=== PATIENT | female | born 1990 | race Two or more races ===

== ENCOUNTER → 2019-09-20 | Outpatient (CLI) | payer MEDICAID ==
[~2019-09-20] MED LIST: ASCO-184 PO; GALC120P INJ
[2019-09-20 14:29] LABS: BASOPHILS # (AUTO) 0.02 x10^3/uL (0-0.1); BASOPHILS % (AUTO) 0 % (0-1); EOSINOPHILS # (AUTO) 0.03 x10^3/uL (0-0.4); EOSINOPHILS % (AUTO) 0 % (1-7); LYMPHOCYTES % (AUTO) 19 % (22-44); MD NO; MEAN CORPUSCULAR HGB CONC 32.9 g/dL (32.4-35.8); MEAN CORPUSCULAR VOLUME 85.1 fL (80-100); MEAN PLATELET VOLUME 7.3 fL (7.4-10.4); MONOCYTES # (AUTO) 0.43 x10^3/uL (0.2-0.8); MONOCYTES % (AUTO) 6 % (2-9); NEUTROPHILS % (AUTO) 75 % (42-75); PLATELET COUNT 372 x10^3/uL (130-400); RED BLOOD COUNT 4.64 x10^6/uL (3.82-5.3); RED CELL DISTRIBUTION WIDTH 13.4 % (9.6-15.2)
[2019-09-20 14:42] LABS: ANION GAP 9 mmol/L (5-15); CALCIUM 9.4 mg/dL (8.5-10.1); CHLORIDE 105 mmol/L (98-107); CREATININE 0.68 mg/dL (0.55-1.02)
[2019-09-20 15:08] LABS: % IRON SATURATION 19 % (20-55); ALANINE AMINOTRANSFERASE 21 U/L (12-78); ALKALINE PHOSPHATASE 72 U/L (45-117); BILIRUBIN,TOTAL 0.5 mg/dL (0.2-1.0); IRON LEVEL 71 mcg/dL (50-170); PREALBUMIN 21.3 mg/dL (20.0-40.0); TOTAL IRON BINDING CAPACITY 381 mcg/dL (250-450); TOTAL PROTEIN 8.1 g/dL (6.4-8.2); TRANSFERRIN 280 mg/dL (200-360)
== END | disposition home or self-care (01) ==
LOC: STAR 13:02
PROVIDERS: ATTEND Thoracic Surgery (Cardiothoracic Vascular Surgery)
DX: Z01.818 Encounter for other preprocedural examination (principal)
CPT/HCPCS: 36415; 71046; 80053; 82306; 82607; 82728; 83540; 83550; 83970; 84134; 84425; 84466; 85025; 93005

== ENCOUNTER 2019-10-02 06:12 | Inpatient (IN) | payer BC, MEDICAID ==
[~2019-10-02] VITALS: Ht 167.6 cm; Wt 151.3 kg
[2019-10-02] MEDS ORDERED: LACTATED RINGERS 1,000 ML IV SCH (06:40)
[2019-10-02 06:56] LABS: HCG UR SG 1.026 (1.003-1.030)
[2019-10-02] MEDS ORDERED: BUPIVACAINE/PF-EPI 0.5% 1:200K ONE (06:59)
[2019-10-02] MEDS ORDERED: ACETAMINOPHEN 100 ML IVPB ONE (07:00)
[2019-10-02] MEDS ORDERED: CHLORHEXIDINE 15 ML UDC MM ONE (07:00)
[2019-10-02] MEDS ORDERED: SCOPOLAMINE 1MG PATCH TD ONE (07:00)
[2019-10-02] MEDS ORDERED: SUGAMMADEX 200 MG/2 ML IVPush ONE (07:27)
[2019-10-02] MEDS ORDERED: MIDAZOLAM 1 MG/ML, 2ML ONE (07:27)
[2019-10-02] MEDS ORDERED: FENTANYL PF 250 MCG/5ML ONE ×2 (07:27→07:46)
[2019-10-02] MEDS ORDERED: KETOROLAC 30 MG/1 ML ONE (07:27)
[2019-10-02 07:31] LABS: CHOL/HDL RATIO 3.3
[2019-10-02] MEDS ORDERED: CEFAZOLIN 1,000 MG ONE (07:37)
[2019-10-02] MEDS ORDERED: ROCURONIUM 10 MG/ML,10ML ONE (07:37)
[2019-10-02] MEDS ORDERED: DEXAMETHASONE 4 MG/ML, 1ML ONE (07:37)
[2019-10-02] MEDS ORDERED: PROPOFOL 150 ML ONE (07:49)
[2019-10-02] MEDS ORDERED: BUPIVACAINE/PF-EPI 0.5% 1:200K INFIL ONE (07:52)
[2019-10-02] MEDS ORDERED: FENTANYL PF 100 MCG/2ML ONE (08:46)
[2019-10-02] MEDS ORDERED: OXYcodone 5 MG/5 ML ORAL.SOL UDC ONE (08:46)
[2019-10-02] MEDS: FENTANYL PF 100 MCG/2ML IV PRN ×2 (08:47→09:45)
[2019-10-02] MEDS ORDERED: PROMETHAZINE 25 MG/ML, 1ML ONE (08:48)
[2019-10-02] MEDS ORDERED: MEPERIDINE/PF 25MG/ML,1ML ONE (08:49)
[2019-10-02] MEDS ORDERED: OXYcodone 5 MG/5 ML ORAL.SOL UDC PO PRN (09:00)
[2019-10-02] MEDS ORDERED: hydrALAzine 20 MG/ML, 1ML IV PRN (09:00)
[2019-10-02] MEDS ORDERED: HYDROmorphone 2 MG/ML, 1ML IVPush PRN (09:00)
[2019-10-02] MEDS ORDERED: LORazepam 2 MG/ML, 1ML IV PRN (09:00)
[2019-10-02] MEDS ORDERED: MEPERIDINE/PF 25MG/0.5ML IVPush PRN (09:00)
[2019-10-02] MEDS ORDERED: PROMETHAZINE 25 MG/ML, 1ML IM PRN (09:00)
[2019-10-02] MEDS ORDERED: ONDANSETRON 2MG/ML, 2ML IVPush PRN ×2 (09:00→10:00)
[2019-10-02] MEDS ORDERED: LABETALOL 5MG/ML, 20ML IV PRN (09:00)
[2019-10-02] MEDS ORDERED: PROMETHAZINE 12.5 MG SUPP PR PRN (09:00)
[2019-10-02] MEDS ORDERED: ALBUTEROL SULFATE 2.5 MG/3 ML NPPB PRN (09:00)
[2019-10-02] MEDS ORDERED: DIPHENHYDRAMINE 50 MG/ML, 1ML IV PRN (09:00)
[2019-10-02] MEDS ORDERED: PHENOL THROAT SPRAY BOTTLE MM PRN (09:00)
[2019-10-02] MEDS ORDERED: PROMETHAZINE 25 MG/ML, 1ML IV PRN (09:00)
[2019-10-02] MEDS ORDERED: ENALAPRILAT 1.25 MG/ML, 2ML IV PRN (09:00)
[2019-10-02] MEDS ORDERED: DIAZEPAM 5 MG/ML, 2ML IVPush PRN (09:00)
[2019-10-02] MEDS ORDERED: hydrALAzine 20 MG/ML, 1ML IVPush PRN (09:00)
[2019-10-02] MEDS ORDERED: HALOPERIDOL 5 MG/ML ONE (09:30)
[2019-10-02] MEDS ORDERED: ONDANSETRON 2MG/ML, 2ML ONE (09:37)
[2019-10-02] MEDS: FAMOTIDINE 20 MG/2 ML IVPush SCH ×2 (10:10→21:29)
[2019-10-02] MEDS: LACTATED RINGERS 1,000 ML IV SCH ×3 (11:19→21:27)
[2019-10-02] MEDS: morphine SULFATE 10 MG/ML, 1ML IVPush PRN ×2 (12:28→19:14)
[2019-10-02] MEDS: ACETAMINOPHEN 100 ML IVPB SCH ×2 (15:44→21:35)
[2019-10-02] MEDS ORDERED: HYDROcodone/APAP 7.5-325MG/15ML UDC PO PRN (16:30)
[2019-10-02] MEDS: KETOROLAC 30 MG/1 ML IVPush PRN (18:42)
[2019-10-02 20:28] VITALS: BP 144/83
[2019-10-02 23:27] VITALS: BP 139/83
[2019-10-03] MEDS: KETOROLAC 30 MG/1 ML IVPush PRN (03:07)
[2019-10-03 03:40] VITALS: BP 137/78
[2019-10-03] MEDS: LACTATED RINGERS 1,000 ML IV SCH (04:24)
[2019-10-03 05:45] LABS: BASOPHILS # (AUTO) 0.02 x10^3/uL (0-0.1); BASOPHILS % (AUTO) 0 % (0-1); EOSINOPHILS % (AUTO) 0 % (1-7); LYMPHOCYTES # (AUTO) 1.19 x10^3/uL (1-3.4); LYMPHOCYTES % (AUTO) 12 % (22-44); MD NO; MEAN CORPUSCULAR HGB CONC 32.7 g/dL (32.4-35.8); MEAN CORPUSCULAR VOLUME 85.5 fL (80-100); MEAN PLATELET VOLUME 8.6 fL (7.4-10.4); MONOCYTES # (AUTO) 0.73 x10^3/uL (0.2-0.8); MONOCYTES % (AUTO) 7 % (2-9); NEUTROPHILS # (AUTO) 8.08 x10^3/uL (1.8-6.8); NEUTROPHILS % (AUTO) 81 % (42-75); PLATELET COUNT 359 x10^3/uL (130-400); RED BLOOD COUNT 4.23 x10^6/uL (3.82-5.3); RED CELL DISTRIBUTION WIDTH 13.2 % (9.6-15.2)
[2019-10-03 05:56] LABS: ALBUMIN 3.6 g/dL (3.4-5.0); ANION GAP 9 mmol/L (5-15); CALCIUM 8.4 mg/dL (8.5-10.1); CHLORIDE 107 mmol/L (98-107)
[2019-10-03 05:58] LABS: CREATININE 0.46 mg/dL (0.55-1.02)
[2019-10-03 06:20] VITALS: BP 127/85
[2019-10-03] MEDS ORDERED: ENOXAPARIN 40 MG/0.4 ML SQ SCH (09:00)
[2019-10-03] MEDS: FAMOTIDINE 20 MG/2 ML IVPush SCH (09:52)
[2019-10-03] MEDS ORDERED: HYDR15SO3 PO (10:59)
[2019-10-03 12:17] VITALS: BP 128/87
== END 2019-10-03 13:16 | disposition home or self-care (01) | DRG 621 ==
LOC: ORIP 06:12 → 4NE 10:35 → DCLOUNGE 10-03 13:08
PROVIDERS: ADMIT Thoracic Surgery (Cardiothoracic Vascular Surgery); ATTEND Thoracic Surgery (Cardiothoracic Vascular Surgery)
PROC: 0DB64Z3 Excision of Stomach, Percutaneous Endoscopic Approach, Vertical (ICD-10-PCS; principal; 2019-10-02 07:30)
DX: E66.01 Morbid (severe) obesity due to excess calories (principal); E28.2 Polycystic ovarian syndrome; G43.909 Migraine, unspecified, not intractable, without status migrainosus; Z03.818 Encounter for observation for suspected exposure to other biological agents ruled out
CPT/HCPCS: 36415; J3490; 80048; 80061; 81025; 82040; 85025; 87635; G0378; J0131; J0690; J1100; J1650; J1885; J2175; J2250; J2405; J2550; J2704; J3010; J2270; J7120